=== PATIENT | male | born 1970 | race Caucasian/White ===

== ENCOUNTER 2024-01-28 11:55 | Emergency (ER) | payer OTHER ==
[~2024-01-28] VITALS: Ht 177.8 cm; Wt 86.2 kg
[2024-01-28] MEDS ORDERED: NAPR-1009 PO (12:12)
[2024-01-28] MEDS ORDERED: TDAP DIPH,PERTUSS,TET VAC/PF 0.5 ML DISP.SYRIN IM ONE (13:16)
[2024-01-28] MEDS ORDERED: LIDOCAINE 2%-EPI 1:100,000 20 ML VIAL ONE (13:16)
[2024-01-28] MEDS: LIDOCAINE 2%-EPI 1:100,000 20 ML VIAL IJ ONE (13:46)
[2024-01-28] MEDS: TDAP DIPH,PERTUSS,TET VAC/PF 0.5 ML DISP.SYRIN IM ONE (13:47)
[2024-01-28] MEDS ORDERED: KETOROLAC TROMETHAMINE 30 MG INJ ONE (13:48)
[2024-01-28] MEDS: KETOROLAC TROMETHAMINE 30 MG INJ IVP ONE (14:13)
[2024-01-28] MEDS ORDERED: HYDR-3972 PO (16:31)
[2024-01-28] MEDS ORDERED: AMOX-430 PO (16:31)
[2024-01-28 17:11] VITALS: BP 136/78; TEMP 98.2; O2SAT 98
== END 2024-01-28 17:13 | disposition home or self-care (01) ==
LOC: ER 11:55
DX: S81.012A Laceration without foreign body, left knee, initial encounter (principal); Z79.891 Long term (current) use of opiate analgesic; Z79.899 Other long term (current) drug therapy; W45.8XXA Other foreign body or object entering through skin, initial encounter; Y93.89 Activity, other specified; Y92.89 Other specified places as the place of occurrence of the external cause; Y99.8 Other external cause status
CPT/HCPCS: 12004; 73560; 90471; 90715; 96374; 99284; J1885; A4606; A4663